=== PATIENT | female | born 1935 | race Caucasian/White ===

== ENCOUNTER → 2016-11-27 | Outpatient (CLI) | payer MEDICARE, OTHER ==
[~2016-11-27] MED LIST: APIX2.5 PO; CARD360C PO; CENTTAB16 PO; CYMB30CA PO; LATA0.00 EACH EYE; METO25 PO; OCUVTAB PO; PATA0.2S EACH EYE; TRAM50 PO
[2016-11-27 13:36] LABS: AUTOMATED NEUTROPHIL # 2.8 TH/MM3 (1.8-7.7); BASOPHIL % 0.7 % (0.0-2.0); EOSINOPHIL # 0.1 TH/MM3 (0-0.4); HEMATOCRIT 47.1 % (35.0-46.0); HEMO FLAGS DIFF FINAL; LYMPH % 31.3 % (9.0-44.0); LYMPHOCYTE # 1.6 TH/MM3 (1.0-4.8); MEAN CELL VOLUME 96.5 FL (80.0-100.0); MEAN CORPUSCULAR HGB CONC 34.2 % (32.0-36.0); MONO % 9.6 % (0.0-8.0); NEUT % 56.4 % (16.0-70.0); PLATELET COUNT 169 TH/MM3 (150-450); RED BLOOD COUNT 4.88 MIL/MM3 (4.00-5.30); RED CELL DISTRIBUTION WIDTH 13.1 % (11.6-17.2)
[2016-11-27 14:01] LABS: BICARBONATE 29.5 MEQ/L (21.0-32.0)
== END ==
LOC: PLAB 10:05
PROVIDERS: ATTEND Internal Medicine Interventional Cardiology
DX: I48.92 Unspecified atrial flutter (principal); R00.2 Palpitations
CPT/HCPCS: 36415; 80048; 85025

== ENCOUNTER → 2017-02-18 | Outpatient (CLI) | payer MEDICARE, OTHER ==
[2017-02-18 13:21] LABS: MEAN CELL VOLUME 97.7 FL (80.0-100.0); MEAN CORPUSCULAR HEMOGLOBIN 32.9 PG (27.0-34.0); MEAN CORPUSCULAR HGB CONC 33.7 % (32.0-36.0); PLATELET COUNT 210 TH/MM3 (150-450); RED BLOOD COUNT 4.71 MIL/MM3 (4.00-5.30); RED CELL DISTRIBUTION WIDTH 12.8 % (11.6-17.2); REVIEW FLAG FINAL; WHITE BLOOD COUNT 5.6 TH/MM3 (4.0-11.0)
[2017-02-18 13:56] LABS: ALKALINE PHOSPHATASE 82 U/L (45-117); ALT (GPT) 21 U/L (10-53); ANION GAP 4 MEQ/L (5-15); AST (GOT) 19 U/L (15-37); BICARBONATE 28.6 MEQ/L (21.0-32.0); BLOOD UREA NITROGEN 9 MG/DL (7-18); CHLORIDE 111 MEQ/L (98-107); GLOMERULAR FILTRATION RATE 68 ML/MIN (>89); GLUCOSE,FASTING 77 MG/DL (74-99); HDL CHOLESTEROL 60.2 MG/DL (40.0-60.0); LDL CHOLESTEROL 125 MG/DL (0-99); LDL CHOLESTEROL DIRECT 125 MG/DL (0-99); POTASSIUM 5.1 MEQ/L (3.5-5.1); SODIUM (NA) 144 MEQ/L (136-145); TOTAL BILIRUBIN ADULT 0.5 MG/DL (0.2-1.0)
== END ==
LOC: PLAB 09:23
PROVIDERS: ATTEND Internal Medicine
DX: I10 Essential (primary) hypertension (principal); E78.5 Hyperlipidemia, unspecified
CPT/HCPCS: 36415; 80053; 80061; 83721; 85027

== ENCOUNTER → 2017-05-18 | Outpatient (CLI) | payer MEDICARE, OTHER ==
[2017-05-18 13:39] LABS: AUTOMATED NEUTROPHIL # 3.2 TH/MM3 (1.8-7.7); BASOPHIL % 0.4 % (0.0-2.0); EOSINOPHIL # 0.1 TH/MM3 (0-0.4); EOSINOPHIL % 1.4 % (0.0-4.0); HEMATOCRIT 47.6 % (35.0-46.0); HEMO FLAGS DIFF FINAL; LYMPH % 32.3 % (9.0-44.0); LYMPHOCYTE # 1.9 TH/MM3 (1.0-4.8); MEAN CELL VOLUME 98.1 FL (80.0-100.0); MEAN CORPUSCULAR HEMOGLOBIN 33.5 PG (27.0-34.0); MEAN CORPUSCULAR HGB CONC 34.2 % (32.0-36.0); MONO % 10.6 % (0.0-8.0); NEUT % 55.3 % (16.0-70.0); PLATELET COUNT 185 TH/MM3 (150-450); RED BLOOD COUNT 4.86 MIL/MM3 (4.00-5.30); RED CELL DISTRIBUTION WIDTH 12.9 % (11.6-17.2); WHITE BLOOD COUNT 5.8 TH/MM3 (4.0-11.0)
[2017-05-18 14:01] LABS: BICARBONATE 29.8 MEQ/L (21.0-32.0)
== END ==
LOC: PLAB 10:50
PROVIDERS: ATTEND Internal Medicine Interventional Cardiology
DX: I48.92 Unspecified atrial flutter (principal)
CPT/HCPCS: 36415; 80048; 85025

== ENCOUNTER 2017-06-12 13:25 | Emergency (ER) | payer MEDICARE, OTHER ==
[~2017-06-12] VITALS: Ht 160 cm; Wt 78.4 kg
[2017-06-12 13:42] VITALS: BP 104/79; PULSE 163; RESP 18; TEMP 98; O2SAT 99
[2017-06-12] MEDS ORDERED: CYMB30CA PO (13:43)
[2017-06-12] MEDS ORDERED: OCUVTAB PO (13:43)
[2017-06-12] MEDS ORDERED: APIX2.5T PO ×2 (13:43→14:09)
[2017-06-12] MEDS ORDERED: PATA0.2S EACH EYE (13:43)
[2017-06-12] MEDS ORDERED: CARD360C PO (13:43)
[2017-06-12] MEDS ORDERED: LATA0.002 EACH EYE (13:43)
[2017-06-12] MEDS ORDERED: METO25TA3 PO (13:43)
[2017-06-12] MEDS ORDERED: METOPROLOL TARTRATE 5 MG/5 ML VIAL IV PUSH STA (13:44)
--- NOTE | 2017-06-12 13:56 | PD ---
HPI Chief Complaint: Cardiac Complaint Time Seen by Provider: 13:36 Travel History International Travel<30 days: No Contact w/Intl Traveler<30days: No Traveled to known affect area: No History of Present Illness HPI This 81-year-old female is complaining of palpitations. She has a history of atrial fibrillation. She has had 2 ablations in the past. Her last one was about 2 years ago area and she is currently on Cardizem 360 as well as metoprolol area and she is not sure of the dose of metoprolol. She's been having some palpitations for the last 2 days. 2 days ago she checked her blood pressure and at that time her heart rate was 150. She is on Eliquis. She has not been having chest pain or shortness of breath. PFSH Past Medical History Hx Anticoagulant Therapy: Yes Arthritis: Yes Atrial Fibrillation: Yes Autoimmune Disease: Yes (FIBROMYALGIA) Anxiety: No Depression: No Heart Rhythm Problems: Yes (A-FLUTTER) Cancer: No Cardiovascular Problems: Yes Chest Pain: No Diabetes: No Diminished Hearing: No Endocrine: No Fibromyalgia: Yes Gastrointestinal Disorders: No Glaucoma: Yes Genitourinary: No Hepatitis: No Hiatal Hernia: No Hypertension: No Immune Disorder: No Implanted Vascular Access Dvce: Yes Musculoskeletal: Yes (CHRONIC BACK PAIN STENOSIS LOWER BACK, LEFT KNEE DEGENERATION) Neurologic: Yes (PT HAS FIBROMYALGIA) Psychiatric: No Reproductive: No Respiratory: Yes (ENVIRONMENTAL ALLERGIES) Integumentary: No Seizures: No Thyroid Disease: No Influenza Vaccination: Yes ?: Not Past Surgical History Abdominal Surgery: Yes (APPENDECTOMY) AICD: No Body Medical Devices: SPINAL CORD STIMULATOR RIGHT HIP Cardiac Surgery: Yes (CARDIAC ABLATION X 2, LAST 2014) Ear Surgery: No Endocrine Surgery: No Eye Surgery: Yes (BILAT CATARACT SURGERY, LASER LEFT EYE) Genitourinary Surgery: Yes (BLADDER SUSPENSION) Gynecologic Surgery: Yes (TOTAL HYSTERECTOMY; REPAIR VAGINAL PROLAPSE) Hysterectomy: Yes Joint Replacement: Yes (RIGHT HIP, RIGHT KNEE) Neurologic Surgery: Yes (SPINAL CORD STIMULATOR ) Oral Surgery: Yes (TONSILLECTOMY) Pacemaker: No Thoracic Surgery: No Other Surgery: Yes Social History Alcohol Use: Yes (wine, occasionally) Tobacco Use: No Substance Use: No Allergies-Medications (Allergen,Severity, Reaction): Coded Allergies: hydrocodone (Unverified Allergy, Severe, ITCHING ALL OVER, 06/12/17) tramadol (Verified Allergy, Severe, Itching, 06/12/17) codeine (Unverified Adverse Reaction, Severe, RINGING OF EARS, CONFUSION, 06/12/17) DIZZINESS morphine (Unverified Adverse Reaction, Severe, 06/12/17) SEVERE AGITATION pentazocine (Unverified Adverse Reaction, Severe, VOMITING, 06/12/17) Reported Meds & Prescriptions Reported Meds & Active Scripts Active Reported Eliquis (Apixaban) 2.5 Mg Tab 2.5 Mg PO BID Pataday Opth 0.2% (Olopatadine HCl) 0.2 % Drops 1 Drop EACH EYE DAILY Ocuvite (Multiple Vitamins W/ Minerals) 1 Tab 1 Tab PO BID Metoprolol Tartrate 25 Mg Tab 25 Mg PO BID Latanoprost Opth Drops (Latanoprost) 0.005% Drops 1 Drop EACH EYE HS Refrigerate until opened. Cymbalta DR (Duloxetine HCl) 30 Mg Capdr 30 Mg PO BID Cardizem CD 24 HR (Diltiazem CD 24 HR) 360 Mg Caper 360 Mg PO DAILY Review of Systems General / Constitutional: No: Fever, Chills Eyes: No: Diploplia HENT: No: Headaches, Vertigo Cardiovascular: Positive: Palpitations, No: Chest Pain or Discomfort Respiratory: No: Cough, Shortness of Breath Gastrointestinal: No: Nausea, Vomiting Genitourinary: No: Urgency Skin: No Rash Endocrine: No: Heat Intolerance Physical Exam Narrative GENERAL: Well-developed female SKIN: Focused skin assessment warm/dry. HEAD: Atraumatic. Normocephalic. EYES: Pupils equal and round. No scleral icterus. No injection or drainage. ENT: No nasal bleeding or discharge. Mucous membranes pink and moist. NECK: Trachea midline. No JVD. CARDIOVASCULAR: Rapid Regular rate and rhythm. No murmur appreciated. RESPIRATORY: No accessory muscle use. Clear to auscultation. Breath sounds equal bilaterally. GASTROINTESTINAL: Abdomen soft, non-tender, nondistended. Hepatic and splenic margins not palpable. MUSCULOSKELETAL: No obvious deformities. No clubbing. No cyanosis. No edema. NEUROLOGICAL: Awake and alert. No obvious cranial nerve deficits. Motor grossly within normal limits. Normal speech. PSYCHIATRIC: Appropriate mood and affect; insight and judgment normal. Data Data Last Documented VS Vital Signs Date Time Temp Pulse Resp B/P (MAP) Pulse Ox O2 Delivery O2 Flow Rate FiO2 06/12/17 14:48 108 18 114/89 (97) 98 Room Air 06/12/17 13:42 98.0 Orders Orders Electrocardiogram (06/12/17 13:44) Complete Blood Count With Diff (06/12/17 13:44) Basic Metabolic Panel (Bmp) (06/12/17 13:44) Troponin I (06/12/17 13:44) Magnesium (Mg) (06/12/17 13:44) Metoprolol Tartrate Inj (Lopressor Inj) (06/12/17 13:44) Metoprolol Tartrate (Lopressor) (06/12/17 14:15) Chest, Single Ap (06/12/17 14:20) Labs Laboratory Tests Test 06/12/17 13:45 White Blood Count 8.7 TH/MM3 Red Blood Count 5.34 MIL/MM3 Hemoglobin 16.7 GM/DL Hematocrit 51.6 % Mean Corpuscular Volume 96.6 FL Mean Corpuscular Hemoglobin 31.2 PG Mean Corpuscular Hemoglobin Concent 32.3 % Red Cell Distribution Width 12.1 % Platelet Count 229 TH/MM3 Mean Platelet Volume 8.7 FL Neutrophils (%) (Auto) 64.3 % Lymphocytes (%) (Auto) 22.0 % Monocytes (%) (Auto) 11.4 % Eosinophils (%) (Auto) 1.2 % Basophils (%) (Auto) 1.1 % Neutrophils # (Auto) 5.6 TH/MM3 Lymphocytes # (Auto) 1.9 TH/MM3 Monocytes # (Auto) 1.0 TH/MM3 Eosinophils # (Auto) 0.1 TH/MM3 Basophils # (Auto) 0.1 TH/MM3 CBC Comment DIFF FINAL Differential Comment Blood Urea Nitrogen 12 MG/DL Creatinine 0.77 MG/DL Random Glucose 101 MG/DL Calcium Level 9.0 MG/DL Magnesium Level 2.3 MG/DL Sodium Level 141 MEQ/L Potassium Level 4.2 MEQ/L Chloride Level 107 MEQ/L Carbon Dioxide Level 24.1 MEQ/L Anion Gap 10 MEQ/L Estimat Glomerular Filtration Rate 72 ML/MIN Troponin I LESS THAN 0.02 NG/ML MDM Medical Decision Making Medical Screen Exam Complete: Yes Emergency Medical Condition: Yes Medical Record Reviewed: Yes Differential Diagnosis Differential includes atrial flutter, atrial fibrillation, SVT Narrative Course EKG shows a fairly regular rhythm at a rate of about 150 which appears to be atrial flutter with block. She was given Lopressor intravenously and slow down to about 120. She's also been given additional 25 mg by mouth O of metoprolol. Her troponin is normal. Diagnosis Primary Impression: Atrial flutter with rapid ventricular response Additional Instructions: Take metoprolol 25 mg 3 times daily, return as needed, follow-up with Dr. Woodard Disposition: 01 DISCHARGE HOME Condition: Stable Florencio Hagen MD Jun 12, 2017 13:56
[2017-06-12 13:58] LABS: AUTOMATED NEUTROPHIL # 5.6 TH/MM3 (1.8-7.7); BASOPHIL # 0.1 TH/MM3 (0-0.2); BASOPHIL % 1.1 % (0.0-2.0); EOSINOPHIL # 0.1 TH/MM3 (0-0.4); EOSINOPHIL % 1.2 % (0.0-4.0); HEMATOCRIT 51.6 % (35.0-46.0); HEMO FLAGS DIFF FINAL; LYMPHOCYTE # 1.9 TH/MM3 (1.0-4.8); MEAN CELL VOLUME 96.6 FL (80.0-100.0); MEAN CORPUSCULAR HEMOGLOBIN 31.2 PG (27.0-34.0); MEAN CORPUSCULAR HGB CONC 32.3 % (32.0-36.0); MONO % 11.4 % (0.0-8.0); NEUT % 64.3 % (16.0-70.0); PLATELET COUNT 229 TH/MM3 (150-450); RED BLOOD COUNT 5.34 MIL/MM3 (4.00-5.30); RED CELL DISTRIBUTION WIDTH 12.1 % (11.6-17.2); WHITE BLOOD COUNT 8.7 TH/MM3 (4.0-11.0)
[2017-06-12 14:06] LABS: CHLORIDE 107 MEQ/L (98-107); POTASSIUM 4.2 MEQ/L (3.5-5.1); SODIUM (NA) 141 MEQ/L (136-145)
[2017-06-12 14:10] LABS: ANION GAP 10 MEQ/L (5-15); BICARBONATE 24.1 MEQ/L (21.0-32.0); BLOOD UREA NITROGEN 12 MG/DL (7-18); MAGNESIUM 2.3 MG/DL (1.5-2.5)
[2017-06-12 14:13] LABS: GLOMERULAR FILTRATION RATE 72 ML/MIN (>89)
[2017-06-12] MEDS ORDERED: METOPROLOL TARTRATE 25 MG TAB PO ONE (14:15)
[2017-06-12 14:16] VITALS: BP 91/68; PULSE 109; RESP 18; O2SAT 98
[2017-06-12 14:48] VITALS: BP 114/89; PULSE 108; RESP 18; O2SAT 98
--- NOTE | 2017-06-12 14:59 | RADRPT ---
EXAM DATE/TIME: 06/12/2017 14:42 [place] COMPARISON: CHEST SINGLE AP, September 10, 2015, 10:46. INDICATIONS : Palpitations, dizzy MEDICAL HISTORY : None. SURGICAL HISTORY : None. ENCOUNTER: Initial ACUITY: 3 days PAIN SCORE: 0/10 LOCATION: Bilateral chest FINDINGS: A single view of the chest demonstrates the lungs to be symmetrically aerated without evidence of mas s, infiltrate or effusion. The cardiomediastinal contours are unremarkable. Osseous structures are intact. Neurostimulator overlying the mid thoracic spine. CONCLUSION: No acute disease. Lula Kern MD on June 12, 2017 at 14:57 Board Certified Radiologist. This report was verified electronically.
[2017-06-12 15:09] VITALS: BP 131/80
--- NOTE | 2017-06-12 15:11 | EKG ---
Date Performed: 06/12/2017 Time Performed: 13:33:45 PTAGE: 81 years EKG: ATRIAL FLUTTER WITH RAPID VENTRICULAR RESPONSE LOW QRS VOLTAGE IN EXTREMITY LEADS ABNORMAL ECG PREVIOUS TRACING : 12/13/2015 08.40 Compared to the previous tracing NSR no longer present DOCTOR: Heather Davila Interpretating Date/Time 06/12/2017 15:10:08
== END 2017-06-12 15:18 | disposition home or self-care (01) ==
LOC: PHED 13:25
DX: I48.92 Unspecified atrial flutter (principal); Z79.01 Long term (current) use of anticoagulants
CPT/HCPCS: 71010; 80048; 83735; 84484; 85025; 93005; 96374

== ENCOUNTER → 2017-12-29 | Outpatient (CLI) | payer MEDICARE, OTHER ==
[~2017-12-29] MED LIST changes: -APIX2.5 PO; +APIX2.5T PO; -CENTTAB16 PO; -LATA0.00 EACH EYE; +LATA0.002 EACH EYE; -METO25 PO; +METO25TA3 PO; -TRAM50 PO
[2017-12-29 17:51] LABS: AUTOMATED NEUTROPHIL # 3.3 TH/MM3 (1.8-7.7); BASOPHIL % 0.5 % (0.0-2.0); EOSINOPHIL # 0.1 TH/MM3 (0-0.4); EOSINOPHIL % 1.6 % (0.0-4.0); HEMATOCRIT 47.5 % (35.0-46.0); LYMPH % 28.8 % (9.0-44.0); LYMPHOCYTE # 1.7 TH/MM3 (1.0-4.8); MEAN CELL VOLUME 97.7 FL (80.0-100.0); MEAN CORPUSCULAR HEMOGLOBIN 32.9 PG (27.0-34.0); MEAN CORPUSCULAR HGB CONC 33.6 % (32.0-36.0); MEAN PLATELET VOLUME 9.6 FL (7.0-11.0); MONO % 10.9 % (0.0-8.0); MONOCYTE # 0.6 TH/MM3 (0-0.9); NEUT % 58.2 % (16.0-70.0); PLATELET COUNT 231 TH/MM3 (150-450); RED BLOOD COUNT 4.86 MIL/MM3 (4.00-5.30); RED CELL DISTRIBUTION WIDTH 12.9 % (11.6-17.2); WHITE BLOOD COUNT 5.8 TH/MM3 (4.0-11.0)
[2017-12-29 18:10] LABS: ALBUMIN 3.5 GM/DL (3.4-5.0); AST (GOT) 23 U/L (15-37); BICARBONATE 25.8 MEQ/L (21.0-32.0); BLOOD UREA NITROGEN 12 MG/DL (7-18); CALCIUM 9.2 MG/DL (8.5-10.1); CHLORIDE 107 MEQ/L (98-107); CREATININE 0.86 MG/DL (0.50-1.00); GLOMERULAR FILTRATION RATE 63 ML/MIN (>89); GLUCOSE,FASTING 89 MG/DL (74-99); SODIUM (NA) 142 MEQ/L (136-145)
[2017-12-29 18:11] LABS: ALT (GPT) 49 U/L (10-53)
[2017-12-29 18:14] LABS: ALKALINE PHOSPHATASE 101 U/L (45-117); TOTAL BILIRUBIN ADULT 0.4 MG/DL (0.2-1.0); TOTAL PROTEIN 6.9 GM/DL (6.4-8.2)
== END ==
LOC: PLAB 13:46
PROVIDERS: ATTEND Internal Medicine Interventional Cardiology
DX: I48.92 Unspecified atrial flutter (principal); R00.2 Palpitations; I49.3 Ventricular premature depolarization
CPT/HCPCS: 36415; 80053; 85025

== ENCOUNTER 2018-02-15 13:05 | Day surgery (SDC) | payer MEDICARE, OTHER ==
[~2018-02-15] VITALS: Ht 160 cm; Wt 77.6 kg
[2018-02-15] VITALS (8 sets, daily range): BP systolic 111–140; BP diastolic 56–78; PULSE 76–116; RESP 16–18; TEMP 97.5–98.2; O2SAT 97
[~2018-02-15 13:05] MED LIST changes: +DEXAMETHASONE SOD PHOS 4 MG/ML VIAL IV ONE; +LIDOCAINE HCL 1% PF 5 ML SYRINGE OTHER ONE; +ONDANSETRON HCL 4 MG/2 ML VIAL IV ONE; +PHENYLEPH/NS 1000 MCG/10 ML SYR IV ONE; +PROPOFOL 200 MG/20 ML AMP IV ONE; +ROCURONIUM INJ 50 MG/5 ML SYRINGE IV PUSH ONE
[2018-02-15] MEDS ORDERED: CRANPOW2 PO (13:44)
[2018-02-15] MEDS ORDERED: FLUT9.9S (13:46)
[2018-02-15] MEDS ORDERED: MELA5CAP3 PO (13:46)
[2018-02-15] MEDS ORDERED: APIX5TAB PO (13:46)
[2018-02-15] MEDS ORDERED: PACE200T PO (13:46)
[2018-02-15] MEDS ORDERED: HEPARIN-NS/PF FLUSH BAG 2,000 ML IV FLUSH ONE (13:48)
[2018-02-15] MEDS ORDERED: LIDOCAINE HCL 1% PF 30 ML VIAL ONE (13:48)
[2018-02-15] MEDS ORDERED: MIDAZOLAM HCL 2 MG/2 ML VIAL ONE (14:00)
[2018-02-15] MEDS ORDERED: SODIUM CHLOR 0.9% 250 ML INJ 250 ML ONE (14:00)
[2018-02-15] MEDS ORDERED: HEPARIN SODIUM - IV 10,000 UNITS/10 ML VIAL ONE (14:00)
[2018-02-15] MEDS ORDERED: HEPARIN-D5W 25,000 U/250 ML 250 ML ONE (14:00)
[2018-02-15] MEDS ORDERED: FAMOTIDINE 20 MG/2 ML VIAL ONE (14:01)
[2018-02-15] MEDS ORDERED: LEVOFLOXACIN 500 MG PREMIX INJ 100 ML IV ONE (14:01)
[2018-02-15 14:03] LABS: AUTOMATED NEUTROPHIL # 3.9 TH/MM3 (1.8-7.7); BASOPHIL % 0.6 % (0.0-2.0); EOSINOPHIL # 0.1 TH/MM3 (0-0.4); EOSINOPHIL % 1.2 % (0.0-4.0); HEMATOCRIT 50.9 % (35.0-46.0); HEMOGLOBIN 17.5 GM/DL (11.6-15.3); LYMPH % 25.7 % (9.0-44.0); LYMPHOCYTE # 1.6 TH/MM3 (1.0-4.8); MEAN CELL VOLUME 96.5 FL (80.0-100.0); MEAN CORPUSCULAR HEMOGLOBIN 33.1 PG (27.0-34.0); MEAN CORPUSCULAR HGB CONC 34.3 % (32.0-36.0); MEAN PLATELET VOLUME 8.5 FL (7.0-11.0); MONO % 10.2 % (0.0-8.0); MONOCYTE # 0.6 TH/MM3 (0-0.9); NEUT % 62.3 % (16.0-70.0); PLATELET COUNT 250 TH/MM3 (150-450); RED BLOOD COUNT 5.28 MIL/MM3 (4.00-5.30); RED CELL DISTRIBUTION WIDTH 13.2 % (11.6-17.2); WHITE BLOOD COUNT 6.2 TH/MM3 (4.0-11.0)
[2018-02-15] MEDS ORDERED: PROTAMINE SULFATE 50 MG/5 ML VIAL ONE (14:06)
[2018-02-15 14:13] LABS: PROTHROMBIN TIME - PATIENT 10.4 SEC (9.8-11.6)
[2018-02-15] MEDS ORDERED: LACTATED RINGER'S 1000 ML IV PRN (14:15)
[2018-02-15] MEDS ORDERED: METOPROLOL TARTRATE 25 MG TAB PO PRN (14:15)
[2018-02-15] MEDS ORDERED: LORazepam 1 MG TAB SL SCH (14:15)
[2018-02-15] MEDS ORDERED: SODIUM CHLORID 0.9% 500 ML IV PRN (14:15)
[2018-02-15] MEDS ORDERED: CHLORHEXIDINE GLUCONATE 2 % 1 PACK (2 CLOTHS) TOPICAL PRN (14:15)
[2018-02-15] MEDS ORDERED: POVIDONE IODINE 5% (ANTISEPSIS KIT) 4 APPLICATIONS EACH NARE PRN (14:15)
[2018-02-15] MEDS: SODIUM CHLORID 0.9% 500 ML INJ 500 ML IV SCH (14:20)
[2018-02-15 14:23] LABS: CALCIUM 9.1 MG/DL (8.5-10.1); CREATININE 0.83 MG/DL (0.50-1.00)
--- NOTE | 2018-02-15 17:14 | CATHPROC ---
Patient Name: BRYAN JEFFERS Study #: [id number] Initial MD: Mabel Ferrari Date of : 1935 Study Date: 02/15/2018 Cardiac Catheterization Report 02/15/2018 5:14:15 PM Financial #: [id number] 1 of 10 Patient Name: BRYAN JEFFERS Study #: [id number] Initial MD: Mabel Ferrari Date of : 1935 Study Date: 02/15/2018 Entire Case Report Patient Information Patient Name BRYAN JEFFERS Date of 1935 Age 82 years Financial # [id number] Gender F AlternateID Lab Number 2 Room Number DC12 Height (in) 63.0 Height (cm) 160.0 BSA 1.81 Weight (lbs) 170.7 Weight (kg) 77.6 Patient Address/Phone Number Home Address [facility] Home Phone Number [phone] [facility] [address] Study Information Study Number Admission Scheduled Start Study Start [id number] Feb 15 2018 1:05PM 02/15/2018 Feb 15 2018 1:45PM [place] Service Electrophysiology Study Admit Source Facility Department [facility] - Lepidopterist Physician and Clinical Staff Initial Mabel Zhang Gray Tender Dagoberto Sevilla,RT(R) Other Anesthesia, DISABILITY MANAGER Recorder Nasra Artis,JENY Scrub Cheryl Benavidez,RT(R) TECH2 Procedures Performed Procedure Location (Site) Vessel Name Ablation Procedure ICE CATHETER INSERT RA Atruim RF Ablation LT. ATRIUM LT. ATRIUM Equipment Time Extension Service Specialist Description Size Mfg Part Number Used/Scraped NEEDLE, TRANSSEPTAL NRG 98 [id number] 13:47 [facility] Used C1 *[id number] [employer]/ EP [id number] 13:47 KIT, TRANSDUCER / AFIB Used PACER *[id number] 02/15/2018 5:14:15 PM Financial #: [id number] 2 of 10 Patient Name: BRYAN JEFFERS Study #: [id number] Initial MD: Mabel Ferrari Date of : 1935 Study Date: 02/15/2018 [id number]- CATHETER, TACTICATH ABLAT BUNDLE 13:47 BUNDLE-[employer] Used 65 BUNDLE *[id number]- BUNDLE [id number] CATHETER, FR7 OPTIMA SPIRAL 13:47 BUND[employer] FR7 *[id number]- Used BUNDLE BUNDLE [id number] 13:47 [employer]UND[employer] CATHETER, JSN, QUAD BUNDLE FR 5 *[id number]- Used BUNDLE [id number] 13:47 BUND[employer] CATHETER, JSN, QUAD BUNDLE FR 5 *[id number]- Used BUNDLE 76703-WFECDO SET, COOL POINT TUBING 13:47 BUNDLE-[employer] *[id number]- Used BUNDLE BUNDLE SHEATH, FR8.5 STEERABLE SM 13:47 BUNDLE-[employer] [employer] 71CM [id number] Used 71CM BUNDLE [id number] 16:47 C[employer] MEDICAL VASCADE, FR5 CLOSURE SYSTEM FR 5 Used *[id number] 16:44 [employer]ICAL VASCADE, FR6 CLOSURE SYSTEM FR 6\\7 Used *[id number] 16:45 [employer] MEDICAL VASCADE, FR6 CLOSURE SYSTEM FR 6\\7 Used *[id number] 16:45 C[employer] MEDICAL VASCADE, FR6 CLOSURE SYSTEM FR 6\\7 Used *[id number] 16:45 CARD[employer]A MEDICAL VASCADE, FR6 CLOSURE SYSTEM FR 6\\7 Used *[id number] COVER, TRANSDUCER CABLE 612-113 13:47 [employer] Used ACUNAV *[id number] 13:47 CORDIS/PACER SHEATH, FR10 VICTORINA 11CM FR 10 Used *[id number] 13:47 CORDIS/PACER SHEATH, FR9 VICTORINA 11CM FR 9 [id number] Used [id number] 13:47 MEDLINE IND[employer]ES PACK, CCL CUSTOM * Used *[id number] 13:47 MEDLINE PACER PARTIDA, LIMB * 7170 *[id number] Used [id number] 13:47 [employer] SHEATH, FR4.5 PRELUDE 11CM FR 4.5 Used [id number] 13:47 NAMIC TUBING, HIGH PRESSURE 48" 48" Used *[id number] [id number] 13:47 NAMIC TUBING, HIGH PRESSURE 48" 48" Used *1535238 [id number] 13:47 [employer],WARM AIR CCL * Used *[id number] [id number] 13:47 [facility] [employer] MEDICAL ELECTRODE KIT, EDGAR X SURFACE * Used *[id number] 623492 16:46 [facility] [employer] MEDICAL SHEATH, EPS, FR5 FAST CATH FR 5 Used *3023930 942191 13:47 [employer] [employer] MEDICAL SHEATH, EPS, FR6 FAST CATH FR 6 Used *[id number] 14:52 [employer] MEDICAL SHEATH, EPS, FR7 FAST CATH FR [id number] 13:47 [facility] [employer] MEDICAL SHEATH, EPS, FR7 FAST CATH FR 7 [id number] Used [id number] 13:47 [facility] [employer] MEDICAL SHEATH, EPS, FR8 FAST CATH FR 8 Used *2460100 15:30 [employer] MEDICAL SHEATH, FR8.5 SL0 933143 Used 02/15/2018 5:14:15 PM Financial #: [id number] Patient Name: BRYAN JEFFERS Study #: [id number] Initial MD: Mabel Ferrari Date of : 1935 Study Date: 02/15/2018 CATHETER, ACUNAV FR10 ICE [id number] 15:27 RORO FR 10 Used (RORO) *[id number] [facility] PAD, ELECTROSURGICAL 13:47 * E7506 *[id number] Used SURGICAL GROUNDING (BLUE) Insurance Information Insurance Payor Medicare Third Constitution Party Third Constitution Party Number MEDICARE A B MCRAB History: Allergies Allergy Reaction codeine RINGING OF EARS, CONFUSION hydrocodone ITCHING ALL OVER morphine Talwin VOMITING pentazocine VOMITING tramadol Itching History: Risk Factors Hypertension Dyslipidemia Yes Yes Labs Hgb (g/dl) Hct (%) RBC (MIL/MM3) WBC (l/cumm) Platelets (thousands) 11.60-17.00 35.00-51.00 4.00-5.90 4.00-11.00 150.00-450.00 17.0 50 5.3 6.2 250 Glucose (mg/dl) BUN (mg/dl) Creatinine (mg/dl) BUN:Creatinine (1:x) 74.00-106.00 7.00-18.00 0.50-1.30 10.00-20.00 86 15 0.8 18.8 Na (meq/l) K (meq/l) 136.00-145.00 3.50-5.10 141 4.1 INR (PTT:PT) 0.90-1.10 1 Medication 02/15/2018 5:14:15 PM Financial #: [id number] 4 of 10 Patient Name: BRYAN JEFFERS Study #: [id number] Initial MD: Mabel Ferrari Date of : 1935 Study Date: 02/15/2018 Medication Total Dose (Bolus/Oral) Medication Total Dosage/Unit 1% XYLOCAINE 40 mL HEPARIN 88276 units PROTAMINE 40 mg Medications (Bolus/Oral) Medication Time Given Dosage/Unit Administered By Reason 1% XYLOCAINE 02/15/2018 3:11:30 PM 20 mL Mabel Ferrari 20 mL 1% XYLOCAINE given by Mabel Ferrari in Left Groin via Subcutaneous. 1% XYLOCAINE 02/15/2018 3:13:02 PM 20 mL Mabel Ferrari 20 mL 1% XYLOCAINE given by Mabel Ferrari in Right Groin via Subcutaneous. HEPARIN 02/15/2018 3:18:49 PM 95802 units Mabel Ferrari As per physicians richie bal order 13840 units HEPARIN given in lab by Mabel Ferrari via Peripheral IV. Ordered by Mabel Ferrari. Reason : As per physicians verbal order. PROTAMINE 02/15/2018 4:42:09 PM 40 mg Anesthesia, DISABILITY MANAGER As per physicians verb al order 40 mg PROTAMINE given in lab by Anesthesia, DISABILITY MANAGER via Peripheral IV. Ordered by Mabel Ferrari. Reason: As per physicians verbal order. Medication (Drip) Medication Time Given Dosage/Unit Concentration/Unit Diluent (ml) Solution ISUPREL 02/15/2018 4:26:03 PM 20 mcg/min 1 mg 250 NaCl .9 20 mcg/min ISUPREL given in lab by Anesthesia, DISABILITY MANAGER via Peripheral IV. Pump/Drip Flow = 300 ml/hr usi ng NaCl .9 with a concentration of 1 mg in 250 ml. Ordered by Mabel Ferrari. Reason: As per physicians verbal order. 02/15/2018 5:14:15 PM Financial #: [id number] 5 of 10 Patient Name: BRYAN JEFFERS Study #: [id number] Initial MD: Mabel Ferrari Date of : 1935 Study Date: 02/15/2018 Initial Case Assessment Cardiovascular HR Rhythm NIBP Chest Pain 113 af 133/81 0 Edema Present Skin color Skin None Normal Warm Dry Circulatory - Right Pulses Dorsalis Pedis 2 Scale (0,1,2,3,4,d) Circulatory - Left Pulses Dorsalis Pedis 2 Scale (0,1,2,3,4,d) Circulatory - Lower Extremities Color Lower Right Color Lower Left Normal Normal Neurological State Oriented to time-place- Alert Moves all extremities person Respiration - General Respiration Rate SpO2 (%) (B/min) 18 99 02/15/2018 5:14:15 PM Financial #: [id number] 6 of 10 Patient Name: BRYAN JEFFERS Study #: [id number] Initial MD: Mabel Ferrari Date of : 1935 Study Date: 02/15/2018 Final Case Assessment Cardiovascular HR Rhythm NIBP Chest Pain 89 sr 121/58 0 Edema Present Skin color Skin None Normal Warm Dry Circulatory - Right Pulses Dorsalis Pedis 2 Scale (0,1,2,3,4,d) Circulatory - Left Pulses Dorsalis Pedis 2 Scale (0,1,2,3,4,d) Circulatory - Lower Extremities Color Lower Right Color Lower Left Normal Normal Neurological State Lethargic Moves all extremities Respiration - General Respiration Rate SpO2 (%) O2 (lpm) (B/min) 16 92 4 Chronological Log Time Study Chronological Log 14:21:30 Patient arrived via Bed. 14:21:31 Patient Name, D.O.B, / Armband Verified By R.N. 14:21:32 Consent signed by the physician and the patient and verified by the Lepidopterist staff. 14:21:33 Pre-op and post- op instructions given; patient acknowledges understanding of instructions. 14:21:33 Verbal Stimulation=2 Physical Stimulation=2 Airway=2 Respiration=2 TOTAL=8. (0=absent, 1=li mited, 2=present) 14:21:34 Anesthesia at bedside. Assumes care of patient. 14:21:44 Patient has been NPO for More than 6Hrs. 14:21:46 Skin Breakdown- none per pt 14:21:52 Patient Warmer Placed on the Table. 02/15/2018 5:14:15 PM Financial #: [id number] Patient Name: BRYAN JEFFERS Study #: [id number] Initial MD: Mabel Ferrari Date of : 1935 Study Date: 02/15/2018 14:21:53 Disposable Defibrillator Pads Placed On Patient. 14:21:54 Shannan Prominences Protected 14:21:55 A # 20 IV was noted in the Antecubital (left). Grade = 0 0.9ns kvo 14:22:11 A # 20 IV was noted in the Antecubital (right). Grade = 0 0.9ns kvo 14:22:25 History and physical on the chart. Assessment: Initial Case, HN=499 BPM, Rhythm=af, DAOP=497/81 mmhg, Chest Pain=0, Edema=None, Co teresa=Normal, Skin = Warm, Dry Right Pulses: Franck Ped=2 Left Pulses: Franck Ped=2 14:34:48 Lower Right Extremities: Color=Normal Lower Left Extremities: Color=Normal Neurological: State=Alert, Ox3, PURCELL Respiration: Resp=18 B/min, SpO2=99 % 14:35:22 Table restraints applied according to hospital policy 14:40:37 Anesthesiologist present for intubation 14:50:16 Bilateral groins prepped with 2% chlorhexidine, and draped after a 3 minute waiting time. 14:51:10 MD paged 14:56:23 MD responded 15:03:28 MD arrived. 15:04:59 Mm out. BL in. Time Out. Correct patient, procedure, procedure equipment, site and side verified with physicia n present. Time 15:05:22 concurred by MD, individual staff and DISABILITY MANAGER. Time Out #2 - Consents verified, patient in correct position, all results are labled and displa yed, safety precautions 15:05:37 taken, antibiotics administered. Time out concurred by MD, individual staff and DISABILITY MANAGER in procedu re 15:05:46 Case Start 15:05:51 ADRIANO in progress 15:11:11 Adriano completed. 15:11:30 20 mL 1% XYLOCAINE given by Mabel Ferrari in Left Groin via Subcutaneous. 15:12:00 Vascular access was obtained in the Fem Art (left). 15:12:25 A SHEATH, FR4.5 PRELUDE 11CM FR 4.5 was advanced into the Fem Art (right) using the Modifie d Seldinger technique. 15:12:30 Vascular access was obtained in the Fem Vein (left). 15:12:33 A SHEATH, EPS, FR6 FAST CATH FR 6 was advanced into the Fem Vein (left) using the Modified Seldinger technique. 15:12:45 Vascular access was obtained in the Fem Vein (left). 15:12:59 A SHEATH, EPS, FR7 FAST CATH FR 7 was advanced into the Fem Vein (left) using the Modified Seldinger technique. 15:13:00 Vascular access was obtained in the Fem Vein (left). 15:13:02 20 mL 1% XYLOCAINE given by Mabel Ferrari in Right Groin via Subcutaneous. 15:13:33 Vascular access was obtained in the Fem Vein (right). 15:13:55 A SHEATH, EPS, FR8 FAST CATH FR 8 was advanced into the Fem Vein (right) using the Modified Seldinger technique. A CATHETER, JSN, QUAD BUNDLE FR 5 was advanced vis Fem Vein (left) and placed in the CS. Placem ent was visually 15:15:35 confirmed under fluoroscopy. A CATHETER, JSN, QUAD BUNDLE FR 5 was advanced vis Fem Vein (left) and placed in the HIS. Place ment was 15:15:47 visually confirmed under fluoroscopy. 02/15/2018 5:14:15 PM Financial #: [id number] Patient Name: BRYAN JEFFERS Study #: [id number] Initial MD: Mabel Ferrari Date of : 1935 Study Date: 02/15/2018 15:17:00 CATHETER, ACUNAV FR10 ICE (RORO) FR 10 Was Postioned. A SHEATH, FR8.5 STEERABLE SM 71CM BUNDLE 71CM was advanced into the Fem Art (right) using the M odified 15:18:00 Seldinger technique. 54239 units HEPARIN given in lab by Mabel Ferrari via Peripheral IV. Ordered by Mabel Ferrari. Reason: As per 15:18:49 physicians verbal order. 15:19:32 Phoebe needle in 15:20:03 The transeptal needle was advanced to the right atrium and passed through the septal wall t o the left atrium. 15:22:09 Phoebe needle out 15:23:11 A SHEATH, FR8.5 SL0 was advanced into the Fem Vein (right) using the Percutaneous technique . 15:24:17 Activated Clotting Time Drawn A CATHETER, FR7 OPTIMA SPIRAL BUNDLE FR7 was advanced vis Fem Vein (right) and placed in the LA . Placement 15:24:25 was visually confirmed under fluoroscopy. 15:24:55 Mapping in progress 15:35:54 Mapping complete, catheter out A CATHETER, TACTICATH ABLAT 65 BUNDLE was advanced vis Fem Vein (right) and placed in the LA. P lacement was 15:36:11 visually confirmed under fluoroscopy. 15:37:40 RF Ablation of the LT. ATRIUM with a CATHETER, TACTICATH ABLAT 65 BUNDLE. 15:40:50 ACT (Normal Range 90-180) = 351 15:43:10 BL out. MM in. 16:09:10 Activated Clotting Time Drawn 16:15:46 ACT (Normal Range 90-180) = 361 20 mcg/min ISUPREL given in lab by Anesthesia, DISABILITY MANAGER via Peripheral IV. Pump/Drip Flow = 300 ml/ hr using NaCl .9 16:26:03 with a concentration of 1 mg in 250 ml. Ordered by Mabel Ferrari. Reason: As per physicians richie bal order. 16:39:06 Isuprel off 16:39:49 All catheter(s) removed without difficulty. A SHEATH, FR9 VICTORINA 11CM FR 9 was exchanged in the Fem Vein (right). This was necessary in ord er to minimize 16:41:10 site leakage. 16:41:52 Heparin off 40 mg PROTAMINE given in lab by Anesthesia, DISABILITY MANAGER via Peripheral IV. Ordered by Mabel Ferrari. R bria: As per 16:42:09 physicians verbal order. 16:45:06 Sheaths removed. Hemostatic devices placed. Pressure applied to access sites. 16:46:03 VASCADE, FR6 CLOSURE SYSTEM FR 6\\7 placement in the Fem Vein (left) 16:46:37 VASCADE, FR6 CLOSURE SYSTEM FR 6\\7 placement in the Fem Vein (left) 16:46:44 VASCADE, FR6 CLOSURE SYSTEM FR 6\\7 placement in the Fem Vein (left) A SHEATH, EPS, FR5 FAST CATH FR 5 was exchanged in the Fem Art (left). This was necessary in or pk to accomodate 16:46:59 a larger catheter. for vascade placement 16:47:50 VASCADE, FR5 CLOSURE SYSTEM FR 5 placement in the Fem Art (left) 16:48:51 VASCADE, FR6 CLOSURE SYSTEM FR 6\\7 placement in the Fem Vein (right). 16:52:56 Pressure held by HH to sites. 17:09:42 Case End 17:11:16 Sterile dressings applied to sites. Sites WNL 17:11:19 No case complications noted. 02/15/2018 5:14:15 PM Financial #: [id number] Patient Name: BRYAN JEFFERS Study #: [id number] Initial MD: Mabel Ferrari Date of : 1935 Study Date: 02/15/2018 Assessment: Final Case, HR=89 BPM, Rhythm=sr, RQYY=962/58 mmhg, Chest Pain=0, Edema=None, [place] r=Normal, Skin = Warm, Dry Right Pulses: Franck Ped=2 Left Pulses: Franck Ped=2 17:11:24 Lower Right Extremities: Color=Normal Lower Left Extremities: Color=Normal Neurological: State=Lethargic, PURCELL Respiration: Resp=16 B/min, SpO2=92 %, O2=4 lpm 17:14:00 Ablation procedure performed: AFIB. 17:14:06 EP Procedure was performed. 17:17:10 Patient moved to [facility] End Study - Contrast Media Used In Study Contrast Total Opened (mL) Total Used (mL) Total Wasted (mL) Unspecified 0 0 0 End Study - Maximum Contrast Load Max Contrast Load (mL) 484.9 End Study - Radiation Exposure Fluoro Time (minutes) 3.5 End Study - Sheaths Sheaths Pulled By Sheath Hold Time (min) Mabel Ferrari End Study - Patient Disposition Complications Transferred To Interventional Outcome No Telemetry Bed successful 02/15/2018 5:14:15 PM Financial #: [id number]
--- NOTE | 2018-02-15 17:15 | PD.CARD ---
Atrial Fibrillation Ablation PROCEDURE DATE: February 15, 2018 PROCEDURES PERFORMED: 1. Electrophysiology study on Isuprel infusion 2. CS cannulation 3. 3-D mapping 4. Transseptal approach 5. Right and left heart catheterization 6. Intracardiac echo 7. Radiofrequency ablation of atrial fibrillation 8. Pulmonary vein isolation 9. Posterior wall ablation 10. Mitral valve isolation 11. Mitral line creation 12. Left atrial tachycardia ablation 13. Left atrial appendage isolation 14. Floor line creation 15. Anterior wall ablation INDICATIONS FOR THE PROCEDURE Ms. Osman is a 82-year-old female with atrial fibrillation, very symptomatic, on multiple medications referred for electrophysiology study and ablation. The risks, the nature and the benefits of the procedure were clearly stated to her. The risks include pneumothorax, cardiac perforation, stroke, need for open heart surgery and even . The patient understood and agreed to proceed. DESCRIPTION OF THE PROCEDURE IN DETAIL As written informed consent was obtained prior to esophageal echocardiogram, the patient was kept on the table where she was prepped and draped in the usual sterile fashion. Conscious sedation was initiated and maintained throughout the procedure by the anesthesiologist. Once sedation was verified, the right and left inguinal areas were anesthetized with 2% Xylocaine. Using modified Seldinger technique, the left femoral vein was cannulated on three occasions, three guidewires were advanced. Over the wire a 6, 7 and a 10-Latvian Hemaquet were advanced. Then the left femoral artery was cannulated on one occasion, one guidewire was advanced. Over the wire a 4-Latvian Hemaquet was advanced. Then the right femoral vein was cannulated on one occasion, one guidewire was advanced. Over the wire a 8-Latvian Hemaquet was advanced. Then under fluoroscopic guidance through the 6 and 7-Latvian Hemaquet, two 5-Latvian Shana curved quadripolar electrophysiology catheters were advanced and placed around the His as well as coronary sinus. Basic interval was measured. The patient was in atrial fibrillation. Through the 10-Latvian Hemaquet, a Cordis Dunbar AcuNav intracardiac echo catheter was advanced and placed at the right atrium. Multiple view was obtained. There was no pericardial effusion, pulmonary vein was seen, atrial septal was visualized. Then the 8-Latvian Hemaquet in the right femoral vein was exchanged for Agilis transseptal sheath that was placed all the way to the superior vena cava. Through the sheath a Phoebe needle was advanced, then the sheath, the dilator and the needle were progressed until foci engaged. Once engaged, the needle was advanced. RF was delivered for 2 seconds. I was able to cross into the left atrium. Once the needle crossed, the dilator was advanced. Once the dilator crossed, the sheath was advanced. Once the sheath crossed, the dilator and the needle were removed. At this point I did flood the system and fluid movement was seen in the left atrium the indicates the sheath is in good position. The patient already received 10,000 units of heparin. The goal is to keep an ACT around 350 during ablation. Then through the sheath a [place] 20 pulse circumferential catheter was advanced. Using [employer] endocardial solution mapping system, a two-dimensional configuration of the left atrium was obtained. Points were taken at the left superior and inferior veins, right superior and inferior veins, mitral valve, and appendages. Then through the sheath a [place] TactiCath 65cm 3.5mm irrigated tipped mapping and radiofrequency ablation catheter was advanced. Esophageal probe was placed temperature monitoring during ablation. When it increased to 0.5 degrees Celsius above baseline, I moved to a different area of the atrium. First I did isolate the left superior and inferior vein. I did make a [place] around the veins. Posterior was ablated. Left atrial appendage was isolated. While ablating at the anterior portion of the mitral valve, patient converted into sinus rhythm. Then a roof line was ablated,a mitral line was isolated, then the mitral valve was isolated. Then the right inferior vein was isolated. I did remap the atrium. There is no significant signal in the atrium. At that point I did advance the circumferential catheter again into the vein. There was no signal into the vein , pacing from the vein showed no conduction to the atrium. Isuprel infusion was initiated at 20 mcg for over 10 minutes. No tachyarrhythmia was induced, post Isuprel no tachyarrhythmia was induced. At that point the procedure was complete. All catheters were removed, atrial septal sheath was exchanged for 9- Latvian Hemaquet, intracardiac echo showed no pericardial effusion. There is still good flow in the pulmonary vein. The patient is going to be transferred to the recovery room. No incident report. The patient tolerated the procedure. Blood loss was minimal. FINDINGS 1. Electrocardiogram: At baseline the patient was in atrial fibrillation, post procedure the patient was in sinus rhythm. 2. Basic interval: Base cycle length was around 556. Post ablation she was around 912 milliseconds. AH at 90 and HV at 70 milliseconds. 3. Tachyarrhythmia: Atrial fibrillation was mapped and ablated. Atrial tachycardia was ablated. The ablation was successful. CONCLUSION Successful electrophysiology study, mapping, radiofrequency ablation of atrial fibrillation, left atrial tachycardia, pulmonary vein isolation, posterior ablation, mitral valve isolation, mitral line creation, roof line creation, floor line creation, left atrial tachycardia. COMMENTS AND RECOMMENDATIONS The patient is going to be transferred to the telemetry unit. Will be observed and when stable can be discharged home. Mabel Ferrari MD February 15, 2018 17:15
[2018-02-15] MEDS ORDERED: DO NOT ADM ANY ANTICOAGULANT DRUGS PRN (17:25)
[2018-02-15] MEDS ORDERED: SODIUM CHLOR 0.9% 250 ML INJ 250 ML IV PRN (17:30)
[2018-02-15] MEDS ORDERED: ATROPINE SULFATE 1 MG/ML VIAL IV PUSH PRN (17:30)
[2018-02-15] MEDS ORDERED: ONDANSETRON HCL 4 MG/2 ML VIAL IV PUSH PRN (17:30)
[2018-02-15] MEDS ORDERED: LORazepam 2 MG/ML VIAL IV PUSH PRN (17:30)
[2018-02-15] MEDS ORDERED: LIDOCAINE HCL 1% 50 ML VIAL INFIL PRN (17:30)
[2018-02-15] MEDS ORDERED: BACITRACIN OINT 0.9 GM PKT TOP ONE (17:30)
[2018-02-15] MEDS ORDERED: oxyCODONE/ACETAMINOPHEN 5 MG/325 MG TAB PO PRN ×2 (17:30)
[2018-02-15] MEDS ORDERED: *HYDROmorphone PF 0.5 MG/0.5 ML PERIprocedure ONLY ONE (17:44)
[2018-02-16] VITALS (19 sets, daily range): BP systolic 117–125; BP diastolic 61–70; PULSE 76–86; RESP 18; TEMP 97.8–98.1; O2SAT 93–96
[2018-02-16 05:26] LABS: PROTHROMBIN TIME - PATIENT 10.1 SEC (9.8-11.6)
[2018-02-16] MEDS: SODIUM CHLORID 0.9% 500 ML INJ 500 ML IV SCH (06:55)
--- NOTE | 2018-02-16 08:52 | EKG ---
Date Performed: 02/16/2018 Time Performed: 05:56:48 PTAGE: 82 years EKG: Sinus rhythm Low QRS voltages in limb leads Borderline ECG PREVIOUS TRACING 02/16/2018 Since the previous tracing, no significant change noted DOCTOR: Marcos Villarreal Interpretating Date/Time 02/16/2018 08:48:12
--- NOTE | 2018-02-16 09:45 | EKG ---
Date Performed: 02/15/2018 Time Performed: 14:07:02 PTAGE: 82 years EKG: Atrial tachycardia/flutter with 2:1 conduction Borderline ECG PREVIOUS TRACING : 06/12/2017 13.33 Rate is slower compared to the prior tracing. DOCTOR: Marcos Villarreal Interpretating Date/Time 02/16/2018 09:45:05
--- NOTE | 2018-02-16 09:46 | EKG ---
Date Performed: 02/15/2018 Time Performed: 17:36:11 PTAGE: 82 years EKG: Sinus rhythm LOW QRS VOLTAGE IN EXTREMITY LEADS NONSPECIFIC T-WAVE ABNORMALITY BORDERLINE ECG PREVIOUS TRACING : 02/15/2018 14.07 Sinus rhythm is new from the prior tracing. DOCTOR: Marcos Villarreal Interpretating Date/Time 02/16/2018 09:45:19
[2018-02-16] MEDS ORDERED: AMIODARONE 200 MG TAB PO SCH (14:30)
[2018-02-16] MEDS ORDERED: DULoxetine HCl DR 30 MG CAP PO SCH (14:30)
[2018-02-16] MEDS ORDERED: APIXABAN 5 MG TABLET PO SCH (14:30)
[2018-02-16] MEDS ORDERED: MULTIVITAMIN-OPHTHALMIC 1 TAB PO SCH (14:30)
--- NOTE | 2018-02-16 14:33 | HHI.PR ---
Subjective Remarks Feeling better Objective Vital Signs Date Time Temp Pulse Resp B/P (MAP) Pulse Ox O2 Delivery O2 Flow Rate FiO2 02/16/18 14:00 82 02/16/18 13:38 96 21 02/16/18 13:00 85 02/16/18 12:00 83 02/16/18 11:32 98.0 84 18 117/68 (84) 96 02/16/18 11:00 86 02/16/18 10:00 82 02/16/18 09:00 83 02/16/18 08:00 97.8 84 18 125/70 (88) 96 02/16/18 08:00 85 02/16/18 07:00 77 02/16/18 06:02 79 02/16/18 05:14 77 02/16/18 04:23 98.1 84 118/67 (84) 94 02/16/18 04:21 76 02/16/18 03:00 84 02/16/18 02:14 78 02/16/18 01:00 82 02/16/18 00:11 98.1 85 123/61 (81) 93 02/16/18 00:00 82 02/15/18 23:00 80 02/15/18 22:03 20 02/15/18 22:00 86 02/15/18 21:37 Nasal Cannula 2.00 02/15/18 21:00 86 02/15/18 20:00 76 02/15/18 19:00 82 02/15/18 19:00 98.2 81 111/62 (78) 97 02/15/18 18:21 97.5 83 16 111/56 (74) 97 02/15/18 18:00 97.8 81 15 107/55 (72) 95 Nasal Cannula 2 02/15/18 18:00 82 02/15/18 17:45 80 18 120/60 (80) 95 Nasal Cannula 2 02/15/18 17:30 81 17 120/61 (80) 99 Nasal Cannula 2 02/15/18 17:24 97.8 84 20 124/61 (82) 93 Nasal Cannula 2 I/O 02/15/18 02/15/18 02/15/18 02/16/18 02/16/18 02/16/18 07:00 15:00 23:00 07:00 15:00 23:00 Intake Total 600 ml 975 ml Output Total 500 ml 550 ml Balance 100 ml 425 ml Intake Oral 600 ml 975 ml Output Urine Total 500 ml 550 ml # Bowel Movements 0 Result Diagram: 02/15/18 1350 02/15/18 1350 Imaging Alert, fully oriented Lungs: ventilated Heart: s1, S2 regular, no gallop Abdomen: soft, no mass Ext: no edema Current Medications Medications (Trade) Dose Ordered Sig/Almaz Route Start Time Stop Time Status Last Admin Lactated Ringer's 1,000 ml @ 30 mls/hr Q24H PRN IV 02/15/18 14:15 02/18/18 14:14 Sodium Chloride 500 ml @ 30 mls/hr [id number] PRN IV 02/15/18 14:15 02/18/18 14:14 (Lopressor) 25 mg TALENT ACQUISITION ADMINISTRATOR PRN PO 02/15/18 14:15 02/18/18 14:14 (Betadine 5% Antisepsis Kit) 1 applic TALENT ACQUISITION ADMINISTRATOR PRN EACH NARE 02/15/18 14:15 02/18/18 14:14 (Chlorhexidine 2% Cloth) 3 pack TALENT ACQUISITION ADMINISTRATOR PRN TOPICAL 02/15/18 14:15 02/18/18 14:14 Sodium Chloride 500 ml @ 30 mls/hr [id number] IV 02/15/18 14:15 02/15/18 14:20 (Ativan) 1 mg TALENT ACQUISITION ADMINISTRATOR SL 02/15/18 14:15 02/18/18 14:14 (Percocet 5-325 Mg) 1 tab Q4H PRN PO 02/15/18 17:30 02/15/18 20:54 (Percocet 5-325 Mg) 2 tab Q4H PRN PO 02/15/18 17:30 (Ativan Inj) 0.5 mg UNSCH PRN IV PUSH 02/15/18 17:30 02/16/18 17:29 (Atropine Inj) 0.5 mg UNSCH PRN IV PUSH 02/15/18 17:30 Sodium Chloride 250 ml @ 500 mls/hr ONCE PRN IV 02/15/18 17:30 02/16/18 17:29 (Zofran Inj) 4 mg Q4H PRN IV PUSH 02/15/18 17:30 (Xylocaine 1% Inj (50 ml)) 10 ml UNSCH PRN INFIL 02/15/18 17:30 02/16/18 17:29 ([facility] – [place], [place] Nursing Information) ALL NURSING DEPARTME... UNSCH PRN .XX 02/15/18 17:25 02/16/18 17:24 (Cordarone) 200 mg DAILY PO 02/16/18 14:30 UNV (Eliquis) 5 mg BID PO 02/16/18 14:30 UNV (Cymbalta Dr) 30 mg BID PO 02/16/18 14:30 UNV (Xalatan 0.005% Opth Soln) 1 drop HS EACH EYE 02/16/18 21:00 UNV (Ocuvite) 1 tab BID PO 02/16/18 14:30 UNV Non-Formulary Medication 1 puff DAILY NA 02/17/18 09:00 UNV Non-Formulary Medication 5 mg BID PO 02/16/18 21:00 UNV Non-Formulary Medication 1 drop DAILY EACH EYE 02/17/18 09:00 UNV Non-Formulary Medication 450 mg DAILY PO 02/17/18 09:00 UNV Assessment and Plan Problem List: (1) Atrial fibrillation ICD Codes: I48.91 - Unspecified atrial fibrillation Plan: SP ablation. In sinus rhythm Feeling better Will be DH Follow up as scheduled Mabel Ferrari MD February 16, 2018 14:33
[2018-02-16] MEDS ORDERED: MELATONIN 5 MG TAB PO SCH (21:00)
[2018-02-16] MEDS ORDERED: LATANOPROST 0.005% OPHT SOLN 2.5 ML BTL EACH EYE SCH (21:00)
[2018-02-17] MEDS ORDERED: OLOPATADINE HCL 0.1% OPHT SOLN 5 ML BTL EACH EYE SCH (09:00)
[2018-02-17] MEDS ORDERED: CRANBERRY 450 MG PO SCH (09:00)
[2018-02-17] MEDS ORDERED: FLUTICASONE PROPIONATE 50 MCG/ACT 16 GM NASAL SPRAY NASAL SCH (09:00)
== END 2018-02-16 15:12 | disposition home or self-care (01) ==
LOC: HDOC 13:05 → HDIC 13:05 → HCPC 18:36 → HDOC 02-16 15:12
PROVIDERS: ATTEND Internal Medicine Interventional Cardiology
DX: I48.2 Chronic atrial fibrillation (principal); R00.2 Palpitations; I25.10 Atherosclerotic heart disease of native coronary artery without angina pectoris; I49.3 Ventricular premature depolarization; I10 Essential (primary) hypertension; R06.00 Dyspnea, unspecified; R53.83 Other fatigue; Z79.01 Long term (current) use of anticoagulants; Z87.891 Personal history of nicotine dependence
CPT/HCPCS: 00537; 80048; 85002; 85025; 85610; 85730; 86850; 86900; 86901; 93005; 93312; 93320; 93325; 93613; 93623; 93656; C1730; C1731; C1732; C1759; C1760; C1766; C2630; G0269; J1170; J1644; J1956; J2720; J3010; J7040; J7050; J1100; J2250; J2370; J2405

== ENCOUNTER 2018-02-21 14:04 | Inpatient (IN) | payer MEDICARE, OTHER ==
[~2018-02-21] VITALS: Ht 160 cm; Wt 79.0 kg
[2018-02-21] VITALS (9 sets, daily range): BP systolic 113–168; BP diastolic 65–80; PULSE 95–102; RESP 16–18; TEMP 98.7; O2SAT 93–98
[~2018-02-21 14:04] MED LIST changes: -APIX2.5T PO; +APIX5TAB PO; -CARD360C PO; +CRANPOW2 PO; -DEXAMETHASONE SOD PHOS 4 MG/ML VIAL IV ONE; +FLUT9.9S; -LIDOCAINE HCL 1% PF 5 ML SYRINGE OTHER ONE; +MELA5CAP3 PO; -METO25TA3 PO; -ONDANSETRON HCL 4 MG/2 ML VIAL IV ONE; +PACE200T PO; -PHENYLEPH/NS 1000 MCG/10 ML SYR IV ONE; -PROPOFOL 200 MG/20 ML AMP IV ONE; -ROCURONIUM INJ 50 MG/5 ML SYRINGE IV PUSH ONE
--- NOTE | 2018-02-21 14:26 | PD ---
HPI Chief Complaint: Cardiac Complaint Time Seen by Provider: 14:25 Travel History International Travel<30 days: No Contact w/Intl Traveler<30days: No Traveled to known affect area: No History of Present Illness HPI 82-year-old female came to the emergency room with history of heart palpitations that started about 2-3 hours ago. She called her human development professor Dr. Jeonged who had done a cardiac ablation last week. He recommended that she should come to the emergency room. Patient called 911 and was brought in by EMS. Initially upon arrival her heart rate was in 130s. When I went to see her it had come down to the 90s. Patient is on Cardizem and amiodarone at home. She says she has been taking the medication and she supposed to. However she drank a glass of white wine last night and continues to drink coffee. She told me that she is not going to change her entire lifestyle because of this. Vital signs are stable. Patient is denying any chest pain. No history of dizziness or syncopal episode. REPLACED BY [facility] Past Medical History Narrative Medical List of her past medical, surgical, social and family history reviewed from the nursing note. Hx Anticoagulant Therapy: Yes Arthritis: Yes Atrial Fibrillation: Yes Autoimmune Disease: Yes (FIBROMYALGIA) Anxiety: No Depression: No Heart Rhythm Problems: Yes (A-FLUTTER) Cancer: No Cardiovascular Problems: Yes (dysrhythmia) Chest Pain: No Diabetes: No Diminished Hearing: No Endocrine: No Fibromyalgia: Yes Gastrointestinal Disorders: No Glaucoma: Yes Genitourinary: No Hepatitis: No Hiatal Hernia: No Hypertension: No Immune Disorder: No Implanted Vascular Access Dvce: Yes Musculoskeletal: Yes (CHRONIC BACK PAIN STENOSIS LOWER BACK, LEFT KNEE DEGENERATION) Neurologic: Yes (PT HAS FIBROMYALGIA) Psychiatric: No Reproductive: No Respiratory: Yes (ENVIRONMENTAL ALLERGIES) Integumentary: No Seizures: No Thyroid Disease: No ?: Not Past Surgical History Abdominal Surgery: Yes (APPENDECTOMY) AICD: No Body Medical Devices: SPINAL CORD STIMULATOR RIGHT HIP Cardiac Surgery: Yes (CARDIAC ABLATION X 2, LAST 2014) Ear Surgery: No Endocrine Surgery: No Eye Surgery: Yes (BILAT CATARACT SURGERY, LASER LEFT EYE) Genitourinary Surgery: Yes (BLADDER SUSPENSION) Gynecologic Surgery: Yes (TOTAL HYSTERECTOMY; REPAIR VAGINAL PROLAPSE) Hysterectomy: Yes Joint Replacement: Yes (RIGHT HIP, RIGHT KNEE) Neurologic Surgery: Yes (SPINAL CORD STIMULATOR ) Oral Surgery: Yes (TONSILLECTOMY) Pacemaker: No Thoracic Surgery: No Other Surgery: Yes Social History Alcohol Use: Yes (wine, occasionally) Tobacco Use: No Substance Use: No Allergies-Medications (Allergen,Severity, Reaction): Coded Allergies: hydrocodone (Unverified Allergy, Severe, ITCHING ALL OVER, 02/21/18) tramadol (Verified Allergy, Severe, Itching, 02/21/18) codeine (Unverified Adverse Reaction, Severe, RINGING OF EARS, CONFUSION, 02/21/18) DIZZINESS morphine (Unverified Adverse Reaction, Severe, 02/21/18) SEVERE AGITATION pentazocine (Unverified Adverse Reaction, Severe, VOMITING, 02/21/18) Comments List of her allergies reviewed from the nursing note Reported Meds & Prescriptions Reported Meds & Active Scripts Active Reported Cardizem CD 24 HR (Diltiazem CD 24 HR) 360 Mg Caper 360 Mg PO DAILY Pacerone (Amiodarone HCl) 200 Mg Tab 200 Mg PO DAILY Melatonin 5 Mg Capsule 5 Mg PO BID Flonase Sensimist (Fluticasone Furoate) 27.5 Mcg/Actuation [place].susp 1 Puff NA DAILY Eliquis (Apixaban) 5 Mg Tab 5 Mg PO BID [Cranberry] 450 Mg PO DAILY Pataday Opth 0.2% (Olopatadine HCl) 0.2 % Drops 1 Drop EACH EYE DAILY Ocuvite (Multiple Vitamins W/ Minerals) 1 Tab 1 Tab PO BID Latanoprost Opth Drops (Latanoprost) 0.005% Drops 1 Drop EACH EYE HS Refrigerate until opened. Selvin ESCALANTE (Duloxetine HCl) 30 Mg Capdr 30 Mg PO BID Narrative Medication List of her home medications reviewed from the nursing note Review of Systems Except as stated in HPI: all other systems reviewed are Neg Cardiovascular: Positive: Palpitations Physical Exam Narrative GENERAL: Awake, alert, elderly, mild distress SKIN: Focused skin assessment warm/dry. HEAD: Atraumatic. Normocephalic. EYES: Pupils equal and round. No scleral icterus. No injection or drainage. ENT: No nasal bleeding or discharge. Mucous membranes pink and moist. NECK: Trachea midline. No JVD. CARDIOVASCULAR: Irregularly irregular rhythm. No murmur appreciated. RESPIRATORY: No accessory muscle use. Clear to auscultation. Breath sounds equal bilaterally. GASTROINTESTINAL: Abdomen soft, non-tender, nondistended. Hepatic and splenic margins not palpable. MUSCULOSKELETAL: No obvious deformities. No clubbing. No cyanosis. No edema. NEUROLOGICAL: Awake and alert. No obvious cranial nerve deficits. Motor grossly within normal limits. Normal speech. PSYCHIATRIC: Appropriate mood and affect; insight and judgment normal. Data Data Last Documented VS Vital Signs Date Time Temp Pulse Resp B/P (MAP) Pulse Ox O2 Delivery O2 Flow Rate FiO2 02/21/18 14:19 98.7 102 16 118/75 (89) 93 Orders Orders Electrocardiogram (02/21/18 14:31) Basic Metabolic Panel (Bmp) (02/21/18 14:31) Complete Blood Count With Diff (02/21/18 14:31) Magnesium (Mg) (02/21/18 14:31) Prothrombin Time / Inr (Pt) (02/21/18 14:31) Troponin I (02/21/18 14:31) Chest, Single Ap (02/21/18 14:31) Ecg Monitoring (02/21/18 14:31) Bilateral Bp Monitoring (02/21/18 14:31) Iv Access Insert/Monitor (02/21/18 14:31) Oximetry (02/21/18 14:31) Oxygen Administration (02/21/18 14:31) Sodium Chloride 0.9% Flush (Ns Flush) (02/21/18 14:45) MDM Medical Decision Making Medical Screen Exam Complete: Yes Emergency Medical Condition: Yes Medical Record Reviewed: Yes Interpretation(s) Twelve-lead EKG was reviewed by me. A. fib with flutter, RVR, normal axis. Heart rate of 102 bpm. Differential Diagnosis A. fib with RVR, status post ablation Narrative Course 2:54 PM blood test results are pending. I have not given her any medication since her heart rate is coming down. Case will be signed over to the oncoming ER physician. He will have to run the case by the human development professor Dr. Leeanne kim. Procedures EKG Prior to Arrival: Yes Regina Ray MD February 21, 2018 14:26
[2018-02-21] MEDS ORDERED: CARD360C PO (14:29)
[2018-02-21] MEDS ORDERED: SODIUM CHLORIDE 0.9% FLUSH 10 ML FLUSH IVF PRN (14:45)
--- NOTE | 2018-02-21 15:02 | RADRPT ---
EXAM DATE/TIME: 02/21/2018 14:45 [facility] COMPARISON: CHEST SINGLE AP, June 12, 2017, 14:42. INDICATIONS : Short of breath, heart flutter. MEDICAL HISTORY : dysrhythmia.fibromyalgia.A flutter SURGICAL HISTORY : Appendectomy. Hysterectomy. cardiac ablation.spinal stimulator ENCOUNTER: Initial ACUITY: 1 day PAIN SCORE: 0/10 LOCATION: Bilateral chest FINDINGS: A single view of the chest demonstrates the lungs to be symmetrically aerated without evidence of mas s, infiltrate or effusion. Spinal stimulator noted.. Mild compensated cardiomegaly. Osseous struct ures are intact. CONCLUSION: Mild compensated cardiomegaly Maximo Gillespie MD FACR on February 21, 2018 at 14:59 Board Certified Radiologist. This report was verified electronically.
[2018-02-21 15:08] LABS: AUTOMATED NEUTROPHIL # 4.4 TH/MM3 (1.8-7.7); BASOPHIL # 0.1 TH/MM3 (0-0.2); BASOPHIL % 1.5 % (0.0-2.0); EOSINOPHIL # 0.1 TH/MM3 (0-0.4); EOSINOPHIL % 1.3 % (0.0-4.0); HEMOGLOBIN 15.5 GM/DL (11.6-15.3); LYMPH % 22.5 % (9.0-44.0); LYMPHOCYTE # 1.5 TH/MM3 (1.0-4.8); MEAN CELL VOLUME 96.1 FL (80.0-100.0); MEAN CORPUSCULAR HGB CONC 32.3 % (32.0-36.0); MONO % 11.8 % (0.0-8.0); MONOCYTE # 0.8 TH/MM3 (0-0.9); NEUT % 62.9 % (16.0-70.0); PLATELET COUNT 221 TH/MM3 (150-450); RED BLOOD COUNT 4.99 MIL/MM3 (4.00-5.30); RED CELL DISTRIBUTION WIDTH 12.4 % (11.6-17.2); WHITE BLOOD COUNT 6.9 TH/MM3 (4.0-11.0)
[2018-02-21 15:30] LABS: BICARBONATE 23.5 MEQ/L (21.0-32.0); CALCIUM 8.7 MG/DL (8.5-10.1); MAGNESIUM 2.2 MG/DL (1.5-2.5)
[2018-02-21 15:32] LABS: INTERNATIONAL NORMALIZED RATIO 1.1 RATIO; PROTHROMBIN TIME - PATIENT 10.7 SEC (9.8-11.6)
[2018-02-21 15:34] LABS: CREATININE 0.61 MG/DL (0.50-1.00)
[2018-02-21 15:38] LABS: TROPONIN I 0.06 NG/ML (0.02-0.05)
--- NOTE | 2018-02-21 17:31 | PD ---
Data Data Last Documented VS Vital Signs Date Time Temp Pulse Resp B/P (MAP) Pulse Ox O2 Delivery O2 Flow Rate FiO2 02/21/18 16:25 95 16 114/66 (82) 93 Room Air 02/21/18 14:19 98.7 Orders Orders Electrocardiogram (02/21/18 14:31) Basic Metabolic Panel (Bmp) (02/21/18 14:31) Complete Blood Count With Diff (02/21/18 14:31) Magnesium (Mg) (02/21/18 14:31) Prothrombin Time / Inr (Pt) (02/21/18 14:31) Troponin I (02/21/18 14:31) Chest, Single Ap (02/21/18 14:31) Ecg Monitoring (02/21/18 14:31) Bilateral Bp Monitoring (02/21/18 14:31) Iv Access Insert/Monitor (02/21/18 14:31) Oximetry (02/21/18 14:31) Oxygen Administration (02/21/18 14:31) Sodium Chloride 0.9% Flush (Ns Flush) (02/21/18 14:45) Admit Order (Ed Use Only) (02/21/18 17:26) Labs Laboratory Tests Test 02/21/18 14:48 White Blood Count 6.9 TH/MM3 Red Blood Count 4.99 MIL/MM3 Hemoglobin 15.5 GM/DL Hematocrit 48.0 % Mean Corpuscular Volume 96.1 FL Mean Corpuscular Hemoglobin 31.0 PG Mean Corpuscular Hemoglobin Concent 32.3 % Red Cell Distribution Width 12.4 % Platelet Count 221 TH/MM3 Mean Platelet Volume 9.0 FL Neutrophils (%) (Auto) 62.9 % Lymphocytes (%) (Auto) 22.5 % Monocytes (%) (Auto) 11.8 % Eosinophils (%) (Auto) 1.3 % Basophils (%) (Auto) 1.5 % Neutrophils # (Auto) 4.4 TH/MM3 Lymphocytes # (Auto) 1.5 TH/MM3 Monocytes # (Auto) 0.8 TH/MM3 Eosinophils # (Auto) 0.1 TH/MM3 Basophils # (Auto) 0.1 TH/MM3 CBC Comment DIFF FINAL Differential Comment Prothrombin Time 10.7 SEC Prothromb Time International Ratio 1.1 RATIO Blood Urea Nitrogen 13 MG/DL Creatinine 0.61 MG/DL Random Glucose 96 MG/DL Calcium Level 8.7 MG/DL Magnesium Level 2.2 MG/DL Sodium Level 140 MEQ/L Potassium Level 3.8 MEQ/L Chloride Level 109 MEQ/L Carbon Dioxide Level 23.5 MEQ/L Anion Gap 8 MEQ/L Estimat Glomerular Filtration Rate 93 ML/MIN Troponin I 0.06 NG/ML MDM Supervised Visit with FELISA: No Narrative Course This case is checked out to me at [address] Ray I reviewed the entirety of the workup with her. Electrolytes are normal. Cardiac enzymes are not alarming She has had no chest pain She came in with a flutter with RVR. It is spontaneously drifted down into the normal range without rate controlling medication She has been in a flutter in the 80s for a while now I reviewed the case in detail with curtain supervisor coverage who is Dr. Marcos Villarreal. He recommends transfer to the main hospital for a repeat ablation tomorrow Patient is agreeable and I have called the hospitalist to help facilitate this Diagnosis Primary Impression: Atrial flutter with rapid ventricular response Admitting Information Admitting Physician Requests: Admit Gino Meraz MD February 21, 2018 17:30
[2018-02-21] MEDS ORDERED: NALOXONE HCL 0.4 MG/ML AMP IV PUSH PRN (18:00)
[2018-02-21] MEDS ORDERED: SODIUM CHLORIDE 0.9% FLUSH 10 ML FLUSH IV FLUSH PRN (18:00)
[2018-02-21] MEDS ORDERED: ONDANSETRON HCL 4 MG/2 ML VIAL IVP PRN (18:00)
[2018-02-21] MEDS ORDERED: ACETAMINOPHEN 325 MG TAB PO PRN (18:00)
[2018-02-21] MEDS: ACETAMINOPHEN 325 MG TAB PO PRN (19:44)
[2018-02-21] MEDS ORDERED: LATANOPROST 0.005% OPHT SOLN 2.5 ML BTL EACH EYE SCH (21:00)
[2018-02-21] MEDS: SODIUM CHLORIDE 0.9% FLUSH 10 ML FLUSH IV FLUSH SCH (21:00)
[2018-02-21] MEDS: OLOPATADINE HCL 0.1% OPHT SOLN 5 ML BTL EACH EYE SCH (21:18)
[2018-02-21] MEDS: MELATONIN 5 MG TAB PO SCH (21:18)
[2018-02-21] MEDS: MULTIVITAMIN-OPHTHALMIC 1 TAB PO SCH (21:18)
[2018-02-21] MEDS: APIXABAN 5 MG TABLET PO SCH (21:18)
[2018-02-21] MEDS: DULoxetine HCl DR 30 MG CAP PO SCH (21:18)
[2018-02-22] VITALS (10 sets, daily range): BP systolic 97–128; BP diastolic 55–82; PULSE 91–133; RESP 16–20; TEMP 97.7–98.4; O2SAT 93–98
[2018-02-22] MEDS ORDERED: METOPROLOL TARTRATE 25 MG TAB PO ONE ×2 (04:00→13:45)
[2018-02-22] MEDS: OLOPATADINE HCL 0.1% OPHT SOLN 5 ML BTL EACH EYE SCH (08:32)
[2018-02-22] MEDS: SODIUM CHLORIDE 0.9% FLUSH 10 ML FLUSH IV FLUSH SCH (08:32)
[2018-02-22] MEDS: APIXABAN 5 MG TABLET PO SCH (08:33)
[2018-02-22] MEDS: DULoxetine HCl DR 30 MG CAP PO SCH (08:33)
[2018-02-22] MEDS: MULTIVITAMIN-OPHTHALMIC 1 TAB PO SCH (08:33)
[2018-02-22] MEDS: MELATONIN 5 MG TAB PO SCH ×2 (08:33→08:37)
[2018-02-22] MEDS ORDERED: AMIODARONE 200 MG TAB PO SCH (09:00)
[2018-02-22] MEDS: DILTIAZEM-CD 180 MG CAP ER PO SCH ×2 (09:00→12:27)
[2018-02-22] MEDS ORDERED: FLUTICASONE PROPIONATE 50 MCG/ACT 16 GM NASAL SPRAY NASAL SCH (09:00)
--- NOTE | 2018-02-22 10:39 | HHI.HP ---
HPI Service [facility] Primary Care Physician Ivan Sparks MD Admission Diagnosis aflutter with rvr, recurrent Diagnoses: (1) Atrial flutter with rapid ventricular response (2) Atrial fibrillation with RVR Chief Complaint: Increased heart rates Travel History International Travel<30 Days: No Contact w/Intl Traveler <30 Da: No Traveled to Known Affected Are: No History of Present Illness 82-year-old female with history of atrial flutter/fibrillation for recent cardiac ablation February 15, 2018 into the emergency department yesterday for evaluation of standing heart rate of 130-150 without any associated chest pain, shortness of breath or dizziness. Patient states she woke up yesterday and monitored her heart rate around 8 AM which was 130, and it kept going up. On admission however her heart rate was 102; and patient had elevated troponin I of 0.06 which has now improved to 0.04. She has no other complaints and states she has been compliant with her medical care. Patient has had a total of 3 prior cardiac ablations over the past 4 years now. Review of Systems Except as stated in HPI: all other systems reviewed are Neg Past Family Social History Past Medical History Atrial flutter Coronary artery disease Cholelithiasis Fibromyalgia glaucoma Macular degenerative disease Osteoarthritis Past Surgical History Ablation secondary to atrial flutter Appendectomy Tonsillectomy Cataract surgery Electrophysiology study Hysterectomy Right knee replacement Neuro spinal stimulator Right total hip replacement Reported Medications Cardizem CD 24 HR (Diltiazem CD 24 HR) 360 Mg Caper 360 Mg PO DAILY Pacerone (Amiodarone HCl) 200 Mg Tab 200 Mg PO DAILY Melatonin 5 Mg Capsule 5 Mg PO BID Flonase Sensimist (Fluticasone Furoate) 27.5 Mcg/Actuation [place].susp 1 Puff NA DAILY Eliquis (Apixaban) 5 Mg Tab 5 Mg PO BID [Cranberry] 450 Mg PO DAILY Pataday Opth 0.2% (Olopatadine HCl) 0.2 % Drops 1 Drop EACH EYE DAILY Ocuvite (Multiple Vitamins W/ Minerals) 1 Tab 1 Tab PO BID Latanoprost Opth Drops (Latanoprost) 0.005% Drops 1 Drop EACH EYE HS Refrigerate until opened. Cymbalta DR (Duloxetine HCl) 30 Mg Capdr 30 Mg PO BID Allergies: Coded Allergies: hydrocodone (Unverified Allergy, Severe, ITCHING ALL OVER, 02/21/18) tramadol (Verified Allergy, Severe, Itching, 02/21/18) codeine (Unverified Adverse Reaction, Severe, RINGING OF EARS, CONFUSION, 02/21/18) DIZZINESS morphine (Unverified Adverse Reaction, Severe, 02/21/18) SEVERE AGITATION pentazocine (Unverified Adverse Reaction, Severe, VOMITING, 02/21/18) Family History Positive for CAD Social History Patient denies tobacco, alcohol or illicit drug intake. Physical Exam Vital Signs Vital Signs Date Time Temp Pulse Resp B/P (MAP) Pulse Ox O2 Delivery O2 Flow Rate FiO2 02/22/18 08:08 98.2 93 16 107/55 (72) 94 02/22/18 04:00 130 02/22/18 03:33 97.7 133 17 116/59 (78) 96 02/22/18 00:24 97.9 116 17 122/82 (95) 93 02/21/18 23:17 97 16 125/76 (92) 98 Room Air 02/21/18 21:50 100 16 168/77 (107) 98 Room Air 02/21/18 19:57 98 16 136/79 (98) 02/21/18 19:17 96 18 132/80 (97) 98 Room Air 02/21/18 18:22 100 16 132/80 (97) 97 Room Air 02/21/18 16:25 95 16 114/66 (82) 93 Room Air 02/21/18 15:13 95 16 119/65 (83) 93 Room Air 113/76 (88) 02/21/18 14:55 93 Room Air 02/21/18 14:19 98.7 102 16 118/75 (89) 93 Physical Exam GENERAL: This is a well-nourished, well-developed patient, in no apparent distress. SKIN: No rashes, ecchymoses or lesions. Cool and dry. HEAD: Atraumatic. Normocephalic. No temporal or scalp tenderness. EYES: Pupils equal round and reactive. Extraocular motions intact. No scleral icterus. No injection or drainage. ENT: Nose without bleeding, purulent drainage or septal hematoma. Throat without erythema, tonsillar hypertrophy or exudate. Uvula midline. Airway patent. NECK: Trachea midline. No JVD or lymphadenopathy. Supple, nontender, no meningeal signs. CARDIOVASCULAR: Regular rate and rhythm without murmurs, gallops, or rubs. RESPIRATORY: Clear to auscultation. Breath sounds equal bilaterally. No wheezes , rales, or rhonchi. GASTROINTESTINAL: Abdomen soft, non-tender, nondistended. No hepato-splenomegaly , or palpable masses. No guarding. MUSCULOSKELETAL: Extremities without clubbing, cyanosis, or edema. No joint tenderness, effusion, or edema noted. No calf tenderness. Negative Homans sign bilaterally. NEUROLOGICAL: Awake and alert. Cranial nerves II through XII intact. Motor and sensory grossly within normal limits. Five out of 5 muscle strength in all muscle groups. Normal speech. Laboratory Laboratory Tests Test 02/21/18 14:48 02/21/18 19:00 02/21/18 23:40 White Blood Count 6.9 Red Blood Count 4.99 Hemoglobin 15.5 Hematocrit 48.0 Mean Corpuscular Volume 96.1 Mean Corpuscular Hemoglobin 31.0 Mean Corpuscular Hemoglobin Concent 32.3 Red Cell Distribution Width 12.4 Platelet Count 221 Mean Platelet Volume 9.0 Neutrophils (%) (Auto) 62.9 Lymphocytes (%) (Auto) 22.5 Monocytes (%) (Auto) 11.8 Eosinophils (%) (Auto) 1.3 Basophils (%) (Auto) 1.5 Neutrophils # (Auto) 4.4 Lymphocytes # (Auto) 1.5 Monocytes # (Auto) 0.8 Eosinophils # (Auto) 0.1 Basophils # (Auto) 0.1 CBC Comment DIFF FINAL Differential Comment Prothrombin Time 10.7 Prothromb Time International Ratio 1.1 Blood Urea Nitrogen 13 Creatinine 0.61 Random Glucose 96 Calcium Level 8.7 Magnesium Level 2.2 Sodium Level 140 Potassium Level 3.8 Chloride Level 109 Carbon Dioxide Level 23.5 Anion Gap 8 Estimat Glomerular Filtration Rate 93 Troponin I 0.06 0.06 0.04 Result Diagram: 02/21/18 1448 02/21/18 1448 Imaging Last Impressions Chest X-Ray 02/21/18 1431 Signed Impressions: Service Date/Time: Wednesday, February 21, 2018 14:45 - CONCLUSION: Mild compensated cardiomegaly Maximo Gillespie MD FACR Septic Shock Reassessment Septic shock perfusion: reassessment completed Caprini VTE Risk Assessment Caprini VTE Risk Assessment: Mod/High Risk (score >= 2) Caprini Risk Assessment Model Point Value = 1 Point Value = 2 Point Value = 3 Point Value = 5 Age 41-60 Minor surgery BMI > 25 kg/m2 Swollen legs Varicose veins or History of unexplained or recurrent spontaneous Oral contraceptives or hormone replacement Sepsis (< 1 month) Serious lung disease, including pneumonia (< 1 month) Abnormal pulmonary function Acute myocardial infarction Congestive heart failure (< 1 month) History of inflammatory bowel disease Medical patient at bed rest Age 61-74 Arthroscopic surgery Major open surgery (> 45 min) Laparoscopic surgery (> 45 min) Malignancy Confined to bed (> 72 hours) Immobilizing plaster cast Central venous access Age >= 75 History of VTE Family history of VTE Factor V Leiden Prothrombin [id number] Lupus anticoagulant Anticardiolipin antibodies Elevated serum homocysteine Heparin-induced thrombocytopenia Other congenital or acquired thrombophilia Stroke (< 1 month) Elective arthroplasty Hip, pelvis, or leg fracture Acute spinal cord injury (< 1 month) Prophylaxis Regimen Total Risk Factor Score Risk Level Prophylaxis Regimen 0-1 Low Early ambulation 2 Moderate Order ONE of the following: *Sequential Compression Device (SCD) *Heparin 5000 units SQ BID 3-4 Higher Order ONE of the following medications: *Heparin 5000 units SQ TID *Enoxaparin/Lovenox 40 mg SQ daily (WT < 150 kg, CrCl > 30 mL/min) *Enoxaparin/Lovenox 30 mg SQ daily (WT < 150 kg, CrCl > 10-29 mL/min) *Enoxaparin/Lovenox 30 mg SQ BID (WT < 150 kg, CrCl > 30 mL/min) AND/OR *Sequential Compression Device (SCD) 5 or more Highest Order ONE of the following medications: *Heparin 5000 units SQ TID (Preferred with Epidurals) *Enoxaparin/Lovenox 40 mg SQ daily (WT < 150 kg, CrCl > 30 mL/min) *Enoxaparin/Lovenox 30 mg SQ daily (WT < 150 kg, CrCl > 10-29 mL/min) *Enoxaparin/Lovenox 30 mg SQ BID (WT < 150 kg, CrCl > 30 mL/min) AND *Sequential Compression Device (SCD) Assessment and Plan Problem List: (1) Atrial flutter with rapid ventricular response ICD Code: I48.92 - Atrial flutter with rapid ventricular response Status: Acute (2) Atrial fibrillation with RVR ICD Code: I48.91 - Unspecified atrial fibrillation Assessment and Plan 82-year-old female with Atrial flutter/fibrillation with rapid ventricular response-recurrent Status post radiofrequency ablation of atrial fibrillation February 15, 2018 [employer] Class[employer] consultation pending Hold oral anticoagulation until patient seen by EP, despite the fact patient was already given 2 doses of Eliquis since admission Continue with amiodarone and Cardizem which were resumed on admission Telemetry monitoring Anxiety/depression Continue with Cymbalta Code Status Full code Discussed Condition With Patient Physician Certification 2 Midnight Certification Type: Admission for Inpatient Services Order for Inpatient Services The services are ordered in accordance with Medicare regulations or non- Medicare payer requirements, as applicable. In the case of services not specified as inpatient-only, they are appropriately provided as inpatient services in accordance with the 2-midnight benchmark. Estimated LOS (days): 2 days is the estimated time the patient will need to remain in the hospital, assuming treatment plan goals are met and no additional complications. Post-Hospital Plan: Not yet determined Hebert Maloney MD February 22, 2018 10:39
--- NOTE | 2018-02-22 11:40 | EKG ---
Date Performed: 02/21/2018 Time Performed: 14:16:30 PTAGE: 82 years EKG: ATRIAL FLUTTER/TACHYCARDIA WITH RAPID VENTRICULAR RESPONSE LOW QRS VOLTAGE IN EXTREMITY KAYDEN DS SEPTAL MYOCARDIAL INFARCTION ABNORMAL ECG INTERPRETATION BASED ON A DEFAULT AGE OF 40 YEARS PREVIOUS TRACING : 02/16/2018 05.56 DOCTOR: Stef Costello Interpretating Date/Time 02/22/2018 11:39:28
[2018-02-22] MEDS: ACETAMINOPHEN 325 MG TAB PO PRN (12:29)
[2018-02-22 14:40] LABS: AUTOMATED NEUTROPHIL # 3.7 TH/MM3 (1.8-7.7); BASOPHIL % 0.8 % (0.0-2.0); EOSINOPHIL # 0.1 TH/MM3 (0-0.4); EOSINOPHIL % 1.9 % (0.0-4.0); HEMATOCRIT 46.7 % (35.0-46.0); HEMOGLOBIN 15.7 GM/DL (11.6-15.3); LYMPH % 23.6 % (9.0-44.0); LYMPHOCYTE # 1.4 TH/MM3 (1.0-4.8); MEAN CELL VOLUME 97.4 FL (80.0-100.0); MEAN CORPUSCULAR HEMOGLOBIN 32.8 PG (27.0-34.0); MEAN CORPUSCULAR HGB CONC 33.7 % (32.0-36.0); MEAN PLATELET VOLUME 9.2 FL (7.0-11.0); MONO % 13.3 % (0.0-8.0); MONOCYTE # 0.8 TH/MM3 (0-0.9); NEUT % 60.4 % (16.0-70.0); PLATELET COUNT 227 TH/MM3 (150-450); RED BLOOD COUNT 4.79 MIL/MM3 (4.00-5.30); RED CELL DISTRIBUTION WIDTH 13.2 % (11.6-17.2); WHITE BLOOD COUNT 6.1 TH/MM3 (4.0-11.0)
[2018-02-22 14:49] LABS: CALCIUM 8.6 MG/DL (8.5-10.1); CREATININE 0.65 MG/DL (0.50-1.00)
[2018-02-22] MEDS ORDERED: METOPROLOL TARTRATE 25 MG TAB PO PRN (15:15)
--- NOTE | 2018-02-22 18:00 | MA ---
cc: Mabel Ferrari MD, Hanscy MD Moussly, Souheil MD Pontey,Hebert Villarreal,Marcos Adame MD DATE: 02/22/2018 PROCEDURE: Cardioversion Mrs. Osman is an 82-year-old female, atrial fibrillation, previous ablation and possible A-flutter fibrillation, left atrial tachycardia who will undergo cardioversion. The risks, the nature and the benefits of the procedure were clearly said to her. Risks include cardiac arrest, stroke, need for open heart surgery and even . She understood and agreed to proceed. PROCEDURE IN DETAIL: After written informed consent was obtained, the patient was brought to the Doc Unit where evaluated by anesthesiologist. Anterolateral pads were placed. Subsequently, a 200 sync biphasic joule was delivered that converted the patient into sinus rhythm. No incident to report. CONCLUSIONS: Successful cardioversion. COMMENT AND RECOMMENDATION: The patient is going to be observed, can be discharged home later today. We will follow as an outpatient. Mabel Ferrari MD /SA , 05:43 PM , 05:59 PM
--- NOTE | 2018-02-22 18:11 | MB ---
cc: Mabel Ferrari MD DATE: 02/22/2018 REASON FOR CONSULTATION: Tachyarrhythmia. HISTORY OF PRESENT ILLNESS: Mrs. Osman is an 82-year-old female with history of atrial fibrillation, previous ablation, admitted through the emergency room due to tachyarrhythmia. The patient was in atrial tachycardia. I was consulted for evaluation and management. The chart was reviewed. The patient was evaluated. ALLERGIES: CODEINE, HYDROCODONE, MORPHINE, PENTAZOCINE, TRAMADOL. SOCIAL HISTORY: Negative for smoking and drinking. FAMILY HISTORY: Noncontributory to her current medical condition. MEDICATIONS: 1. The patient is on Eliquis 5 mg a day. 2. Amiodarone 200 mg a day. 3. Cardizem-CD 360 mg a day. 4. Cymbalta 30 mg a day. 5. Ophthalmic drip. 6. Multivitamin. 7. Melatonin. REVIEW OF SYSTEMS: The patient refers no chest pain, palpitations or shortness of breath, but no vomiting, no fever. PHYSICAL EXAMINATION: GENERAL: Alert, fully oriented. VITAL SIGNS: Blood pressure 102/72, pulse 101, respiratory rate 18. LUNGS: Ventilated. CARDIOVASCULAR: S1, S2. Tachycardic, irregular. ABDOMEN: Soft. No mass. EXTREMITIES: No edema. ELECTROCARDIOGRAM: Shows possible left atrial tachyarrhythmia, atrial fibrillation. LABORATORY DATA: Hemoglobin is 15.7, white blood cell 6.1. Potassium 4.2, creatinine 0.65. Troponin 0.04. ASSESSMENT AND RECOMMENDATIONS: Ms. Osman has atrial fibrillation, possible of atrial tachyarrhythmia. She has a recent ablation. She is still in the healing phase. The best support she is cardioversion. The case extensively discussed with her. The risks, the nature and the benefits of the procedure are clearly stated to her. The risks include cardiac arrest, need for endotracheal intubation, need for pacing and even . She understood and agreed to proceed. Procedure will be scheduled for today. Mabel Ferrari MD HS/SB , 05:42 PM , 06:11 PM
--- NOTE | 2018-02-22 18:20 | HHI.PR ---
Addendum to Inpatient Note Addendum Reason: Additional Documentation Additional Information Discharge patient to home Condition on discharge: Improved Regular Diet as tolerated Ad Shahrzad activity Rx written:see EMR Follow-up with primary care physician in 1week Cardiology in 1 week Hebert Maloney MD February 22, 2018 18:20
== END 2018-02-22 19:25 | disposition home or self-care (01) | DRG 310 ==
LOC: PHED 14:04 → PHEDA 17:28 → NEPHCDU 02-22 00:14
PROVIDERS: ADMIT Hospitalist; ATTEND Hospitalist
PROC: 5A2204Z Restoration of Cardiac Rhythm, Single (ICD-10-PCS; principal; 2018-02-22)
DX: I47.1 Supraventricular tachycardia (principal); I48.92 Unspecified atrial flutter; I48.91 Unspecified atrial fibrillation; M79.7 Fibromyalgia; I25.10 Atherosclerotic heart disease of native coronary artery without angina pectoris; H40.9 Unspecified glaucoma; M19.90 Unspecified osteoarthritis, unspecified site; F32.9 Major depressive disorder, single episode, unspecified; F41.9 Anxiety disorder, unspecified; Z82.49 Family history of ischemic heart disease and other diseases of the circulatory system; Z79.01 Long term (current) use of anticoagulants; Z88.5 Allergy status to narcotic agent; Z96.651 Presence of right artificial knee joint; Z96.641 Presence of right artificial hip joint
CPT/HCPCS: 71045; 80048; 83735; 84484; 85025; 85610; 93005